=== PATIENT | female | born 1970 | race American Indian/Alaskan Native ===

== ENCOUNTER 2021-10-09 10:40 | Emergency (ER) | payer SELFPAY ==
[2021-10-09] MEDS ORDERED: METOCLOPRAMIDE 10 MG/2 ML INJ IV ONE ×2 (11:48→13:25)
[2021-10-09] MEDS ORDERED: SODIUM CHLORIDE 0.9% 1000 ML 1,000 ML IV ONE ×2 (11:48→14:56)
[2021-10-09] MEDS ORDERED: MECLIZINE 25 MG TAB PO ONE ×2 (11:48→13:25)
--- NOTE | 2021-10-09 12:23 | XRay Report ---
XR chest 1V ap INDICATION / CLINICAL INFORMATION: dizziness. COMPARISON: None available. FINDINGS: SUPPORT DEVICES: None. HEART /PULMONARY VASCULATURE: No significant abnormality. LUNGS / PLEURA: No significant pulmonary or pleural abnormality. No pneumothorax. ADDITIONAL FINDINGS: No significant additional findings. IMPRESSION: 1. No acute findings. Signer Name: Fernando Geronimo MD Signed: 10/09/2021 12:18 PM Workstation Name: [id number]
--- NOTE | 2021-10-09 12:41 | Cat Scan Report ---
CT HEAD WITHOUT CONTRAST INDICATION / CLINICAL INFORMATION: acute onset dizziness, vomiting, room spinning. TECHNIQUE: All CT scans at this location are performed using CT dose reduction for ALARA by means of automated exposure control. COMPARISON: None available. FINDINGS: BRAIN PARENCHYMA: No acute intracranial hemorrhage. No evidence of recent infarct. No mass effect or midline shift. VENTRICULAR SYSTEM/EXTRA-AXIAL SPACES: Ventricles are normal for age. No extra-axial fluid collection . ORBITS: Normal as visualized. SKELETAL SYSTEM/SOFT TISSUES: Normal bones and soft tissues. PARANASAL SINUSES/MASTOID AIR CELLS: Scattered mucosal thickening of the maxillary sinuses and ethmoi d air cells and right frontal sinus. No air-fluid levels. Mastoid air cells are clear. ADDITIONAL FINDINGS: None. IMPRESSION: 1. No acute intracranial abnormality. Signer Name: Fernando Geronimo MD Signed: 10/09/2021 12:36 PM Workstation Name: [id number]
[2021-10-09 13:46] LABS: Basophils # (Auto) 0.1 K/mm3 (0.0-0.1); Basophils % (Auto) 1.2 % (0.0-1.8); Eosinophils # (Auto) 0.1 K/mm3 (0.0-0.4); Eosinophils % (Auto) 1.4 % (0.0-4.3); Hematocrit 38.3 % (30.3-42.9); Hemoglobin 12.9 gm/dl (10.1-14.3); Lymphocytes # (Auto) 0.4 K/mm3 (1.2-5.4); Lymphocytes % (Auto) 5.8 % (13.4-35.0); Mean Corpuscular HGB Conc 34 % (30-34); Mean Corpuscular Volume 86 fl (79-97); Monocytes # (Auto) 0.1 K/mm3 (0.0-0.8); Monocytes % (Auto) 1.8 % (0.0-7.3); Platelet Count 230 K/mm3 (140-440); Red Blood Count 4.45 M/mm3 (3.65-5.03); Red Cell Distribution Width 13.7 % (13.2-15.2)
[2021-10-09 14:05] LABS: Albumin 4.4 g/dL (3.9-5); Calcium 9.2 mg/dL (8.4-10.2)
--- NOTE | 2021-10-09 14:08 | Emergency Department Report ---
HPI - General Chief Complaint: Dizziness PUI?: No Time Seen by Provider: 10/09/21 11:02 - HPI HPI: 51-year-old obese female with self-reported history of hypertension (pt states she was told several years ago that she has HTN but is not taking medications), presents for evaluation of acute onset of dizziness. She describes the sensation of dizziness as "the room is spinning whenever I get up or move and change position." It is improved and resolved with rest. She also reports multiple episodes of watery nonbloody vomiting. She denies any headache. No vision changes, no tingling numbness in her arms or legs, no difficulty talking walking or word finding. She states she was having earaches 1 week ago but that this has since resolved. No active or recent URI symptoms. No prior history of similar symptoms in the past. Pain currently 0 out of 10. ED Past Medical Hx - Past Medical History Previous Medical History?: No - Social History Smoking Status: Never Smoker Substance Use Type: None ED Review of Systems ROS: Stated complaint: DIZZINESS/NAUSEA/VOMITING Other details as noted in HPI Comment: All other systems reviewed and negative Physical Exam - Physical Exam Vital Signs: Vital Signs 10/09/21 10/09/21 10/09/21 10:46 11:16 11:53 Temperature 98.9 F 97.8 F Pulse Rate 90 70 78 Respiratory 18 20 Rate Blood Pressure 185/105 171/104 Blood Pressure 202/114 [Left] O2 Sat by Pulse 98 99 Oximetry 10/09/21 10/09/21 12:03 13:42 Temperature Pulse Rate 77 80 Respiratory 20 20 Rate Blood Pressure Blood Pressure 161/94 160/97 [Left] O2 Sat by Pulse 99 97 Oximetry General: Gen:obese F, uncomfortable appearing; HEENT: Normocephalic atraumatic pupils equally round and reactive to light extraocular muscles intact sclera anicteric; TMs clear bilaterally Neck: Full range of motion, no midline spinal tenderness palpation, no JVD, no carotid bruits, no nuchal rigidity CVS: S1-S2 regular rate and rhythm with no gallops rubs or murmurs, chest wall n ontender Pulmonary: Clear to auscultation bilaterally, no wheezes rales or rhonchi Abdomen: Soft nondistended nontender no guarding or rebound tenderness, no palpable deformities or step-offs, normal active bowel sounds, no hepatosplenomegaly, no pulsatile masses : Deferred Extremities: No cyanosis no clubbing no edema, intact distal peripheral pulses, Integumentary: Skin normal, no petechia no purpura no abscess no lacerations no evidence of trauma no evidence of infection Neuro: Patient is awake alert and oriented to person place time situation, mentating well, cranial nerves II through XII intact, no focal neurodeficits, sensation grossly intact; +art hallpike maneuver when pt's head turned to left; no nystamgus, no fasciculations, no tremors Psych: Calm cooperative, mood affect normal ED Course Vital Signs 10/09/21 10/09/21 10/09/21 10:46 11:16 11:53 Temperature 98.9 F 97.8 F Pulse Rate 90 70 78 Respiratory 18 20 Rate Blood Pressure 185/105 171/104 Blood Pressure 202/114 [Left] O2 Sat by Pulse 98 99 Oximetry 10/09/21 10/09/21 12:03 13:42 Temperature Pulse Rate 77 80 Respiratory 20 20 Rate Blood Pressure Blood Pressure 161/94 160/97 [Left] O2 Sat by Pulse 99 97 Oximetry - Reevaluation(s) Reevaluation #1: 10/09/21 13:07 Patient reassessed. She is extremely comfortable and well-appearing. She reports her symptoms have improved. We will continue to monitor 10/09/21 14:13 Reevaluation #2: 10/09/21 14:13 pt reassessed; she c/o persistent nausea and vomiting; she appears comfortable; pt will be ordered for valium 5mg IVP; given pt's persistent symptoms, pt will be ordered for ct angio head/neck ED Medical Decision Making - Lab Data Result diagrams: 10/09/21 13:23 - EKG Data -: EKG Interpreted by Mo EKG shows normal: sinus rhythm Rate: normal - EKG Data When compared to previous EKG there are: no significant change, previous EKG unavailable - Radiology Data Radiology results: report reviewed - Medical Decision Making 51-year-old female presents for evaluation of uncontrolled hypertension and symptoms of peripheral vertigo. Vitals reviewed. NIH score 0. Patient given labetalol and her blood pressure significantly improved. Madison-Hallpike maneuver positive when patient's head was turned to the right and findings on exam are consistent with benign positional paroxysmal vertigo. CT scan of head negative for any acute pathology. Patient was given antiemetics here as well as meclizine. Her symptoms significantly improved but then subsequently reoccurred upon final reassessment. Given that today is Monday and MRI of brain is not able to be obtained, pt will be ordered for ct angio head/neck to r/o acute intracranial pathology as the cause of her symptoms. Due to change in provider shift time @ 15:00, pt signed out to Dr. Paniagua for follow up of ct angio head/neck. Critical Care Time: No Critical care attestation.: If time is entered above; I have spent that time in minutes in the direct care of this critically ill patient, excluding procedure time. ED Disposition Clinical Impression: Vertigo, Uncontrolled hypertension Disposition: 30 STILL A PATIENT Is pt being admited?: No Does the pt Need Aspirin: No Condition: Stable Instructions: Hypertension (ED), Dizziness, Wcmz-cm-Alge Additional Instructions: Follow up with your primary care doctor in 1 business day for immediate reassessment. This is very important. Take meclizine 2-3 times a day, for the next 7 days. Take Zofran as needed for nausea. Return to the nearest emergency department soon as possible if you develop severe worsening dizziness, vomiting, inability tolerate liquids or solids, any fever of one 0.4 Fahrenheit or higher, or if any other new worrisome symptoms develop
[2021-10-09] MEDS ORDERED: diazePAM 10 MG/2 ML SYRINGE IV ONE (14:13)
[2021-10-09] MEDS ORDERED: ONDANSETRON 4 MG/2 ML INJ IV ONE (16:34)
--- NOTE | 2021-10-09 18:29 | Cat Scan Report ---
CTA NECK WITH CONTRAST 10/09/2021 INDICATION / CLINICAL INFORMATION: persistent dizziness, vomiting, room spinning. COMPARISON: None. TECHNIQUE: Routine CTA of the neck is performed. 3-D/MIP reformats were postprocessed. Percentage st enosis is determined by direct quantitative measurements of diseased internal carotid artery diameter compared with normal distal internal carotid artery reference segments or by criteria similar to LEN CET where applicable. All CT scans at this location are performed using CT dose reduction for ALARA b y means of automated exposure control. CONTRAST: 100 ml of Isovue 370 FINDINGS: Carotid bifurcations: The carotid bifurcations are relatively high in the neck, located at the C2-3 d isc level. This is a normal variant. No evidence of carotid bifurcation stenosis. Carotid arteries: No significant abnormality. Cervical vertebral arteries: No significant abnormality. Aortic arch: No significant abnormality. None. IMPRESSION: No significant abnormality. There is no neck CT angiographic correlate for persistent dizziness, vomiting, and room spinning. Signer Name: Yuniel Rubio MD Signed: 10/09/2021 6:25 PM Workstation Name: [id number]
--- NOTE | 2021-10-09 18:33 | Cat Scan Report ---
CTA HEAD WITH CONTRAST 10/09/2021 HISTORY: persistent dizziness, vomiting, room spinning. COMPARISON: None. TECHNIQUE: All CT scans at this location are performed using CT dose reduction for ALARA by means of automated exposure control.. 3-D/MIP reformats postprocessed. Percentage stenosis is determined by d irect quantitative measurements of diseased internal carotid artery diameter compared with normal dis erich internal carotid artery reference segments or by criteria similar to NASCET where applicable. CONTRAST: 100 ml of Omnipaque 350 FINDINGS: CTA HEAD: Intracranial vertebral arteries: No significant abnormality. Basilar artery: No significant abnormality. Posterior cerebral arteries: No significant abnormality. Intracranial internal carotid arteries: No significant abnormality. Anterior cerebral arteries: No significant abnormality. Middle cerebral arteries: No significant abnormality. Dural venous sinuses:Not optimally opacified. No significant abnormality. Additional findings: None. IMPRESSION: 1. No significant abnormality. There is no CT angiographic correlate for persistent dizziness, vomiting, room spinning. Signer Name: Yuniel Rubio MD Signed: 10/09/2021 6:29 PM Workstation Name: [id number]
[2021-10-09 19:16] VITALS: BP 154/86
--- NOTE | 2021-10-12 13:47 | Electrocardiograph Report ---
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
== END 2021-10-09 19:15 | disposition still patient (30) ==
LOC: ED 10:40
DX: R42 Dizziness and giddiness (principal); I10 Essential (primary) hypertension
CPT/HCPCS: 36415; 70450; 70496; 70498; 71045; 80053; 84484; 85025; 93005; 96361; 96374; 96375; 96376; 99285; J2405; J2765; J3360; J3490; J7030; Q9967